=== PATIENT | female | born 1960 | race Caucasian/White ===

== ENCOUNTER → 2017-05-16 | Outpatient (CLI) | payer BC, OTHER | LOC: RAD 08:08 | DX: Z12.31 Encounter for screening mammogram for malignant neoplasm of breast (principal); R22.32 Localized swelling, mass and lump, left upper limb ==

== ENCOUNTER → 2020-09-04 | Outpatient (CLI) | payer BC, OTHER ==
[~2020-09-04] MED LIST: ALLEGRA30 MG PO; ASA5UEC PO; AZOR 5-40 MG T1 EACH PO; BENICAR40 MG PO; CARVEDILOL12.5 MG PO; COREG PO; ENTERIC COATED ASA PO; LASIX 40 MG TAB40 M1 PO; LEVOTHROID PO; LEVOTHYROXIN0.137 MG PO; LEXAPRO 10 MG T10 MG PO; LIPITOR40 MG PO; LISINOPRIL40 MG PO; LYRICA100 MG PO; NORCO 7.5-3251 EACH PO; POTASSIUM20 PO; PRESTIQUE; XANAX XR1 MG PO; ZOLOFT
== END ==
LOC: LAB 13:03
PROVIDERS: ATTEND Neuromusculoskeletal Medicine & OMM
DX: Z20.828 Contact with and (suspected) exposure to other viral communicable diseases (principal)